=== PATIENT | female | born 1980 | race Caucasian/White ===

== ENCOUNTER → 2016-11-20 | Outpatient (CLI) | payer BC ==
--- NOTE | 2016-11-20 12:53 | XR ---
EXAMINATION TYPE: XR shoulder complete LT DATE OF EXAM: 11/20/2016 12:47 PM COMPARISON: NONE HISTORY: Pain The osseous structures are intact. There is no acute fracture or dislocation. The AC joint is maint ained. IMPRESSION: 1. No acute process.
== END | disposition home or self-care (01) ==
LOC: RADXRMAIN 12:33
PROVIDERS: ATTEND Family Medicine
DX: M25.512 Pain in left shoulder (principal)

== ENCOUNTER → 2017-02-05 | Outpatient (CLI) | payer BC ==
--- NOTE | 2017-02-05 22:05 | MR ---
EXAMINATION TYPE: MR lumbar spine wo con DATE OF EXAM: 02/05/2017 7:54 PM COMPARISON: NONE HISTORY: Low back pain TECHNIQUE: T1 and T2 axial and sagittal images of the lumbar spine are submitted. FINDINGS: There is no abnormal signal seen within the visualized spinal cord or paraspinal soft tissu es. At L1-2 there is no degenerative disc disease, disc herniation, or canal stenosis. No foraminal encro achment. At L2-3 there is no degenerative disc disease, disc herniation, or canal stenosis. No foraminal encro achment. At L3-4 there is no degenerative disc disease, disc herniation, or canal stenosis. No foraminal encro achment. At L4-5 there is mild hypertrophic change of the facets. There is broad-based central disc bulging wi th mild effacement of thecal sac and mild bilateral foraminal encroachment. No Canal stenosis. At L5-S1 there is moderate facet arthropathy. No disc herniation or canal stenosis. No foraminal encr oachment. IMPRESSION: 1. At L4-L5 there is broad-based central disc bulging with mild effacement of thecal sac and mild zohra ateral foraminal encroachment. No Canal stenosis. 2. Moderate facet arthropathy L5-S1
== END | disposition home or self-care (01) ==
LOC: RADMRIMAIN 18:38
PROVIDERS: ATTEND Family Medicine
DX: M51.26 Other intervertebral disc displacement, lumbar region (principal); M46.97 Unspecified inflammatory spondylopathy, lumbosacral region
CPT/HCPCS: 72148

== ENCOUNTER 2017-09-17 16:05 | Observation (INO) | payer BC ==
[2017-09-17 16:53] LABS: Anisocytosis Slight; Basophils # (A) 0.1 k/uL (0-0.2); Basophils % (A) 0 %; CH 22.1; CHCM 32.5; Eosinophils # (A) 0.3 k/uL (0-0.7); Eosinophils % (A) 3 %; HCT 35.6 % (34.0-46.0); HDW 2.86; HGB 11.5 gm/dL (11.4-16.0); Luc # (Auto) 0.14; Luc % (Auto) 1; Lymphocytes # (A) 1.7 k/uL (1.0-4.8); Lymphocytes % (A) 16 %; MCH 22.2 pg (25.0-35.0); MCHC 32.4 g/dL (31.0-37.0); MCV 68.6 fL (80.0-100.0); Mean Platelet Volume 8.1; Microcytosis Marked; Monocytes # (A) 0.6 k/uL (0-1.0); Monocytes % (A) 5 %; Neutrophils # (A) 8.1 k/uL (1.3-7.7); Neutrophils % (A) 75 %; RBC 5.19 m/uL (3.80-5.40); RDW 18.2 % (11.5-15.5); WBC 10.8 k/uL (3.8-10.6); WBC (Perox) 11.25
[2017-09-17 17:01] LABS: Partial Thromboplastin Time 24.2 sec (22.0-30.0); Prothrombin Time 10.3 sec (9.0-12.0)
[2017-09-17 17:02] LABS: ALT 28 U/L (9-52); AST 13 U/L (14-36); Alkaline Phosphatase 57 U/L (38-126); Anion Gap 9 mmol/L; Blood Urea Nitrogen 12 mg/dL (7-17); Calcium 9.8 mg/dL (8.4-10.2); Carbon Dioxide 20 mmol/L (22-30); Chloride 108 mmol/L (98-107); Glucose 77 mg/dL (74-99); Magnesium 2.1 mg/dL (1.6-2.3); Non-African American GFR(MDRD) >60 (>60 ml/min/1.73 sqM); Sodium 137 mmol/L (137-145); Total Bilirubin 0.3 mg/dL (0.2-1.3)
[2017-09-17 17:18] LABS: Creatine Kinase 49 U/L (30-135)
[2017-09-17 17:29] LABS: Creatine Kinase MB 0.3 ng/mL (0.0-2.4); Troponin I <0.012 ng/mL (0.000-0.034)
--- NOTE | 2017-09-17 17:33 | ED ---
SOB HPI - General Chief Complaint: Shortness of Breath Stated Complaint: Chest Pain Time Seen by Provider: 09/17/17 16:22 Source: patient, RN notes reviewed Mode of arrival: wheelchair Limitations: no limitations - History of Present Illness Initial Comments: 36-year-old female presents emergency Department with chief complaint of shortness breath. Patient states her last few weeks she's had increasing shortness of breath. Patient states she initially thought it was due to her went to see her MAINTENANCE TRAINER Dr. Herrmann who sent to the emergency department at [facility]. At that point she had lab work, CT of her chest. They states that she had no evidence of corneal is a. She states her symptoms have been slowly getting worse and she was sent to Dr. Melendez's office for pulmonary testing today which she was told was normal. Due to her increasing symptoms or called her physician who recommended physical emergency Department for possible echo. She states that she was told that she has a hole in her heart she's not sure where states she was born with this. Patient states her last echo was approximately 13 years ago. Patient is A1 has had no symptoms of this during her prior pregnancies. She states her first she did have preeclampsia with though she was not placed on any medications. Patient denies headache but states she occasionally has some dizziness. Patient states that she is not having some chest discomfort which is new for her. Patient states that she is anxious though she does not feel this is related to anxiety. Patient has no prior asthma or lung disorders. - Related Data Home Medications Medication Instructions Recorded Confirmed Albuterol Inhaler [Ventolin Hfa 1 - 2 puff INHALATION RT-Q6H PRN 09/17/17 Inhaler] Ferrous Sulfate [Feosol] 325 mg PO DAILY 09/17/17 09/17/17 Levothyroxine Sodium [Synthroid] 75 mcg PO DAILY 09/17/17 09/17/17 [id number]-[id number] Acid 1 cap PO DAILY 09/17/17 09/17/17 [-U Capsule (formulary)] Allergies Allergy/AdvReac Type Severity Reaction Status Date / Time latex Allergy Unknown Verified 09/17/17 16:23 Review of Systems ROS Statement: Those systems with pertinent positive or pertinent negative responses have been documented in the HPI. ROS Other: All systems not noted in ROS Statement are negative. Past Medical History Past Medical History: Fibromyalgia, Thyroid Disorder History of Any Multi-Drug Resistant Organisms: None Reported Past Surgical History: Orthopedic Surgery Additional Past Surgical History / Comment(s): knee surgery Past Psychological History: No Psychological Hx Reported Smoking Status: Never smoker Past Alcohol Use History: Occasional Past Drug Use History: None Reported General Exam Limitations: no limitations General appearance: alert, in no apparent distress Head exam: Present: atraumatic, normocephalic, normal inspection Neck exam: Present: normal inspection. Absent: tenderness, meningismus, lymphadenopathy Respiratory exam: Present: normal lung sounds bilaterally. Absent: respiratory distress, wheezes, rales, rhonchi, stridor Cardiovascular Exam: Present: regular rate, normal rhythm, normal heart sounds. Absent: systolic murmur, diastolic murmur, rubs, gallop, clicks GI/Abdominal exam: Present: soft, normal bowel sounds. Absent: distended, tenderness, guarding, rebound, rigid Psychiatric exam: Present: anxious Skin exam: Present: warm, dry, intact, normal color. Absent: rash Course Vital Signs 09/17/17 09/17/17 16:14 16:44 Temperature 97.8 F Pulse Rate 73 66 Respiratory 20 22 Rate Blood Pressure 124/64 111/59 O2 Sat by Pulse 100 100 Oximetry Medical Decision Making - Medical Decision Making Lab work, CTA of the chest was obtained from [facility] which did show no evidence of pulmonary wasn't. Patient's labwork essentially unremarkable and similar to labwork today. - Lab Data Result diagrams: 09/17/17 16:39 09/17/17 16:39 Lab Results 09/17/17 09/17/17 09/17/17 Range/Units 16:39 16:39 16:39 WBC 10.8 H (3.8-10.6) k/uL RBC 5.19 (3.80-5.40) m/uL Hgb 11.5 (11.4-16.0) gm/dL Hct 35.6 (34.0-46.0) % MCV 68.6 L (80.0-100.0) fL MCH 22.2 L (25.0-35.0) pg MCHC 32.4 (31.0-37.0) g/dL RDW 18.2 H (11.5-15.5) % Plt Count 267 (150-450) k/uL Neutrophils % 75 % Lymphocytes % 16 % Monocytes % 5 % Eosinophils % 3 % Basophils % 0 % Neutrophils # 8.1 H (1.3-7.7) k/uL Lymphocytes # 1.7 (1.0-4.8) k/uL Monocytes # 0.6 (0-1.0) k/uL Eosinophils # 0.3 (0-0.7) k/uL Basophils # 0.1 (0-0.2) k/uL Anisocytosis Slight Microcytosis Marked PT (9.0-12.0) sec INR (<1.2) APTT (22.0-30.0) sec Sodium 137 (137-145) mmol/L Potassium 4.0 (3.5-5.1) mmol/L Chloride 108 H (98-107) mmol/L Carbon Dioxide 20 L (22-30) mmol/L Anion Gap 9 mmol/L BUN 12 (7-17) mg/dL Creatinine 0.85 (0.52-1.04) mg/dL Est GFR (MDRD) Af Amer >60 (>60 ml/min/1.73 sqM) Est GFR (MDRD) Non-Af >60 (>60 ml/min/1.73 sqM) Glucose 77 (74-99) mg/dL Calcium 9.8 (8.4-10.2) mg/dL Magnesium 2.1 (1.6-2.3) mg/dL Total Bilirubin 0.3 (0.2-1.3) mg/dL AST 13 L (14-36) U/L ALT 28 (9-52) U/L Alkaline Phosphatase 57 (38-126) U/L Total Creatine Kinase 49 (30-135) U/L CK-MB (CK-2) 0.3 (0.0-2.4) ng/mL CK-MB (CK-2) Rel Index 0.6 Troponin I <0.012 (0.000-0.034) ng/mL NT-Pro-B Natriuret Pep pg/mL Total Protein 7.0 (6.3-8.2) g/dL Albumin 3.8 (3.5-5.0) g/dL 09/17/17 09/17/17 Range/Units 16:39 16:39 WBC (3.8-10.6) k/uL RBC (3.80-5.40) m/uL Hgb (11.4-16.0) gm/dL Hct (34.0-46.0) % MCV (80.0-100.0) fL MCH (25.0-35.0) pg MCHC (31.0-37.0) g/dL RDW (11.5-15.5) % Plt Count (150-450) k/uL Neutrophils % % Lymphocytes % % Monocytes % % Eosinophils % % Basophils % % Neutrophils # (1.3-7.7) k/uL Lymphocytes # (1.0-4.8) k/uL Monocytes # (0-1.0) k/uL Eosinophils # (0-0.7) k/uL Basophils # (0-0.2) k/uL Anisocytosis Microcytosis PT 10.3 (9.0-12.0) sec INR 1.0 (<1.2) APTT 24.2 (22.0-30.0) sec Sodium (137-145) mmol/L Potassium (3.5-5.1) mmol/L Chloride (98-107) mmol/L Carbon Dioxide (22-30) mmol/L Anion Gap mmol/L BUN (7-17) mg/dL Creatinine (0.52-1.04) mg/dL Est GFR (MDRD) Af Amer (>60 ml/min/1.73 sqM) Est GFR (MDRD) Non-Af (>60 ml/min/1.73 sqM) Glucose (74-99) mg/dL Calcium (8.4-10.2) mg/dL Magnesium (1.6-2.3) mg/dL Total Bilirubin (0.2-1.3) mg/dL AST (14-36) U/L ALT (9-52) U/L Alkaline Phosphatase (38-126) U/L Total Creatine Kinase (30-135) U/L CK-MB (CK-2) (0.0-2.4) ng/mL CK-MB (CK-2) Rel Index Troponin I (0.000-0.034) ng/mL NT-Pro-B Natriuret Pep 34 pg/mL Total Protein (6.3-8.2) g/dL Albumin (3.5-5.0) g/dL 09/17/17 17:59 EKG performed at 16:26 normal sinus rhythm rate of 68 VA 138 QRS 86 QTC is QTC 382/406 Disposition Clinical Impression: Exertional shortness of breath, Disposition: ADMITTED IP TO THIS [facility] Condition: Stable Referrals: Jonah Shah DO [Primary Care Provider] - 1-2 days
--- NOTE | 2017-09-17 17:48 | XR ---
EXAMINATION TYPE: XR chest 2V DATE OF EXAM: 09/17/2017 COMPARISON: NONE HISTORY: Difficulty breathing TECHNIQUE: Frontal and lateral views of the chest are obtained. FINDINGS: Heart and mediastinum are normal. Lungs are clear. Costophrenic angles are clear. There ar e chest leads. Bony thorax is intact. IMPRESSION: Normal chest
[2017-09-17] MEDS ORDERED: ACETAMINOPHEN TAB 325 MG TAB PO PRN (18:08)
[2017-09-17 20:28] VITALS: BMI 38.9
[2017-09-17 20:51] LABS: Amorphous Sediment,Urine Rare /hpf; Appearance,Urine Turbid (Clear); Bacteria,Urine Occasional /hpf; Bilirubin,Urine Negative (Negative); Glucose,Urine (UA) Negative (Negative); Ketones,Urine Negative (Negative); Leukocyte Esterase,Urine Trace (Negative); Mucus,Urine Rare /hpf; Nitrite,Urine Negative (Negative); PH, Urine 6.5 (5.0-8.0); Particle Count 13323; Protein,Urine Negative (Negative); RBC,Urine 2 /hpf (0-5); Specific Gravity,Urine 1.018 (1.001-1.035); Squamous Epithelial Cell,Urine 1 /hpf (0-4); UA Billing (MACRO vs. MICRO) MICRO; Urobilinogen,Urine <2.0 mg/dL (<2.0)
[2017-09-18 12:31] LABS: ABG Base Excess -4.3 mmol/L; ABG HCO3 19 mmol/L (21-25); ABG PCO2 26 mmHg (35-45); ABG PH 7.48 (7.35-7.45); ABG PO2 108 mmHg (83-108); ABG TCO2 20 mmol/L (19-24)
--- NOTE | 2017-09-18 13:14 | P.CNPUL ---
History of Present Illness Consult date: 09/18/17 Reason for consult: dyspnea History of present illness: A 36-year-old female patient was admitted yesterday to the hospital because of increased shortness of breath. This patient is at her 10th week of . She has had previous pregnancies without any major complaints or respiratory difficulties. Over this past 10 days, the patient has been short of breath with limited amount of activity and even at rest. Upon walking she gets short of breath. In fact, her shortness of breath is out of proportion to her physical findings. The patient was sent over to [facility] and she underwent a CT angios the chest and was reported to be negative. She subsequently was seen in our office for her pulmonary function test and apparently the data was also within normal limits. She has no cough or sputum production. No pleurisy. No hemoptysis. Her chest x-rays clear. She has minimal swelling lower extremities. No 70 cardiomyopathy. Most of any congenital heart disease. Echocardiogram is in progress for now. She has history of hypothyroidism and she is on thyroid hormones replacement. No previous history of DVT. No previous history of PE. No previous history of cardiomyopathy. She has a previous history of preeclampsia during . Room air pulse ox is 98-100%. She did not demonstrate any exertional desaturations. Her heart rate also remained less than 100 and is sinus rhythm with activity. Her EKG showing normal sinus rhythm. No other acute abnormalities was noted. Her ABG showing acute respiratory alkalosis. This was done and FiO2 of 21%. The patient has a pH of 7.48 with a pCO2 of 26 and pO2 of 108 and there is no evidence of any a a gradient. The troponin is negative. The hemoglobin is at 11.5. Review of Systems Constitutional: Denies chills, Denies fever Eyes: denies blurred vision, denies bulging eye, denies decreased vision Ears: deny: decreased hearing, ear discharge, earache Ears, nose, mouth and throat: Denies headache, Denies sore throat Cardiovascular: Reports decreased exercise tolerance, Reports shortness of breath Respiratory: Reports dyspnea Gastrointestinal: Denies abdominal pain, Denies diarrhea, Denies nausea, Denies vomiting Genitourinary: Denies dysuria, Denies hematuria Musculoskeletal: absent: ankle pain, ankle stiffness, ankle swelling Integumentary: Denies pruritus, Denies rash Neurological: Denies numbness, Denies weakness Psychiatric: Denies anxiety, Denies depression Endocrine: Denies fatigue, Denies weight change Past Medical History Past Medical History: Fibromyalgia, Thyroid Disorder History of Any Multi-Drug Resistant Organisms: None Reported Past Surgical History: Orthopedic Surgery Additional Past Surgical History / Comment(s): knee surgery Past Anesthesia/Blood Transfusion Reactions: No Reported Reaction Past Psychological History: No Psychological Hx Reported Smoking Status: Never smoker Past Alcohol Use History: Occasional Past Drug Use History: None Reported - Past Family History Daughter(s) Family Medical History: No Reported History Medications and Allergies Home Medications Medication Instructions Recorded Confirmed Type Albuterol Inhaler [Ventolin Hfa 1 - 2 puff INHALATION RT-Q6H PRN 09/17/17 History Inhaler] Ferrous Sulfate [Feosol] 325 mg PO DAILY 09/17/17 09/17/17 History Levothyroxine Sodium [Synthroid] 75 mcg PO DAILY 09/17/17 09/17/17 History Xfc-Itwx-Roppw Acid 1 cap PO DAILY 09/17/17 09/17/17 History [-U Capsule (formulary)] busPIRone HCL [Buspar] 7.5 mg PO BID #30 tab 09/18/17 Rx Allergies Allergy/AdvReac Type Severity Reaction Status Date / Time latex Allergy Rash/Hives Verified 09/17/17 20:29 Physical Exam Vitals: Vital Signs Temp Pulse Pulse Pulse Resp BP BP 09/18/17 12:06 97.6 F 67 24 118/70 09/18/17 12:00 95 28 H 09/18/17 08:04 97.2 F L 67 24 108/57 09/18/17 08:00 24 09/18/17 02:00 66 20 106/55 09/18/17 00:00 72 20 09/17/17 23:00 97 F L 72 20 106/61 09/17/17 20:00 60 20 09/17/17 18:48 98.4 F 60 18 118/79 09/17/17 18:16 98.6 F 60 22 119/66 09/17/17 18:07 97.5 F L 67 20 136/71 09/17/17 16:44 66 22 111/59 09/17/17 16:14 97.8 F 73 20 124/64 Pulse Ox 09/18/17 12:06 100 09/18/17 12:00 98 09/18/17 08:04 100 09/18/17 08:00 09/18/17 02:00 100 09/18/17 00:00 09/17/17 23:00 100 09/17/17 20:00 09/17/17 18:48 100 09/17/17 18:16 100 09/17/17 18:07 100 09/17/17 16:44 100 09/17/17 16:14 100 Intake and Output 09/17/17 09/18/17 09/18/17 22:59 06:59 14:59 Intake Total 400 500 Balance 400 500 Intake: Oral 400 500 Other: Voiding Method Toilet Toilet # Voids 1 1 1 Weight 116.12 kg The patient appeared well nourished and normally developed. Vital signs as documented. Head exam is unremarkable. No scleral icterus or corneal arcus noted. Neck is without jugular venous distension, thyromegaly, or carotid bruits. Carotid upstrokes are brisk bilaterally. Lungs are clear to auscultation and percussion. Cardiac exam reveals the PMI to be normally sized and situated. Rhythm is regular. First and second heart sounds normal. No murmurs, rubs or gallops. Abdominal exam reveals normal bowel sounds, no masses , no organomegaly and no aortic enlargement. Extremities are nonedematous and both femoral and pedal pulses are normal. Results - Laboratory Findings CBC and BMP: 09/17/17 16:39 09/17/17 16:39 ABG ABG pH 7.48 (7.35-7.45) H 09/18/17 12:27 ABG pCO2 26 mmHg (35-45) L 09/18/17 12:27 ABG pO2 108 mmHg (83-108) 09/18/17 12:27 ABG O2 Saturation 99.0 % (94-97) H 09/18/17 12:27 PT/INR, D-dimer PT 10.3 sec (9.0-12.0) 09/17/17 16:39 INR 1.0 (<1.2) 09/17/17 16:39 Abnormal lab findings: Abnormal Labs 09/17/17 09/17/17 09/17/17 16:39 16:39 20:35 WBC 10.8 H MCV 68.6 L MCH 22.2 L RDW 18.2 H Neutrophils # 8.1 H ABG pH ABG pCO2 ABG HCO3 ABG O2 Saturation Chloride 108 H Carbon Dioxide 20 L AST 13 L Urine Appearance Turbid H Ur Leukocyte Esterase Trace H Amorphous Sediment Rare H Urine Bacteria Occasional H Urine Mucus Rare H Urine Yeast (Budding) Moderate H 09/18/17 12:27 WBC MCV MCH RDW Neutrophils # ABG pH 7.48 H ABG pCO2 26 L ABG HCO3 19 L ABG O2 Saturation 99.0 H Chloride Carbon Dioxide AST Urine Appearance Ur Leukocyte Esterase Amorphous Sediment Urine Bacteria Urine Mucus Urine Yeast (Budding) - Diagnostic Findings Chest x-ray: image reviewed Assessment and Plan Plan: Impression 1 dyspnea without any clear cardiopulmonary cause for shortness of breath. CT angios the chest was clear. The ABG showing Acute respiratory alkalosis without evidence of a AA gradient. Recurrent chest x-ray is clear. No signs of any cardiomyopathy and echocardiogram is in progress. 2 acute respiratory alkalosis 3 , 10th week of gestation 4 obesity. 5 hypothyroidism 6 anxiety maintained on blue spot on outpatient basis Plan To complete a dyspnea workup, the patient will need an echocardiogram. We'll check a Doppler of lower extremity. No exertional hypoxemia. No evidence of any AA gradient. Could be her shortness of breath related to hormonal changes interstitial . Could be related to an anxiety. We'll continue to follow.
--- NOTE | 2017-09-18 14:02 | P.HPIM ---
History of Present Illness Patient is a 82-year-old female came in with compensative shortness of breath patient is 10 weeks , underwent extensive evaluation patient apparently had an outpatient primary function testing which is a normal and patient had CT angios the chest which was negative for pulmonary embolism in [facility]. Troponin I ABG patient does not have any significant past medical history patient is nonsmoker not a smoker lung exam clear to auscultation patient is still tachypneic which I believe is due to anxiety I did review buspirone which can be used during . Patient will obtain TSH echocardiogram was also obtain will await the results if all of these are negative patient will be discharged patient probably has anxiety patient was a valid by cardiology patient upon ablation is saturating at 100% patient's pCO2 is 26 secondary to hyperventilation your patient denied any orthopnea PND patient does not have any pedal edema, denied any chest pain Review of Systems REVIEW OF SYSTEMS: CONSTITUTIONAL: No fever, no malaise, no fatigue. HEENT: No recent visual problems or hearing problems. Denied any sore throat. CARDIOVASCULAR: No chest pain, orthopnea, PND, no palpitations, no syncope. PULMONARY: no cough, no hemoptysis. GASTROINTESTINAL: No diarrhea, no nausea, no vomiting, no abdominal pain. Normoactive bowel sounds. NEUROLOGICAL: No headaches, no weakness, no numbness. HEMATOLOGICAL: Denies any bleeding or petechiae. GENITOURINARY: Denies any burning micturition, frequency, or urgency. MUSCULOSKELETAL/RHEUMATOLOGICAL: Denies any joint pain, swelling, or any muscle pain. ENDOCRINE: Denies any polyuria or polydipsia. The rest of the 14-point review of systems is negative. Past Medical History Past Medical History: Fibromyalgia, Thyroid Disorder History of Any Multi-Drug Resistant Organisms: None Reported Past Surgical History: Orthopedic Surgery Additional Past Surgical History / Comment(s): knee surgery Past Anesthesia/Blood Transfusion Reactions: No Reported Reaction Past Psychological History: No Psychological Hx Reported Smoking Status: Never smoker Past Alcohol Use History: Occasional Past Drug Use History: None Reported - Past Family History Daughter(s) Family Medical History: No Reported History Medications and Allergies Home Medications Medication Instructions Recorded Confirmed Type Albuterol Inhaler [Ventolin Hfa 1 - 2 puff INHALATION RT-Q6H PRN 09/17/17 History Inhaler] Ferrous Sulfate [Feosol] 325 mg PO DAILY 09/17/17 09/17/17 History Levothyroxine Sodium [Synthroid] 75 mcg PO DAILY 09/17/17 09/17/17 History Olb-Alur-Fuupj Acid 1 cap PO DAILY 09/17/17 09/17/17 History [-U Capsule (formulary)] busPIRone HCL [Buspar] 7.5 mg PO BID #30 tab 09/18/17 Rx Allergies Allergy/AdvReac Type Severity Reaction Status Date / Time latex Allergy Rash/Hives Verified 09/17/17 20:29 Physical Exam Vitals: Vital Signs Temp Pulse Pulse Pulse Resp BP BP 09/18/17 12:06 97.6 F 67 24 118/70 09/18/17 12:00 95 28 H 09/18/17 08:04 97.2 F L 67 24 108/57 09/18/17 08:00 24 09/18/17 02:00 66 20 106/55 09/18/17 00:00 72 20 09/17/17 23:00 97 F L 72 20 106/61 09/17/17 20:00 60 20 09/17/17 18:48 98.4 F 60 18 118/79 09/17/17 18:16 98.6 F 60 22 119/66 09/17/17 18:07 97.5 F L 67 20 136/71 09/17/17 16:44 66 22 111/59 09/17/17 16:14 97.8 F 73 20 124/64 Pulse Ox 09/18/17 12:06 100 09/18/17 12:00 98 09/18/17 08:04 100 09/18/17 08:00 09/18/17 02:00 100 09/18/17 00:00 09/17/17 23:00 100 09/17/17 20:00 09/17/17 18:48 100 09/17/17 18:16 100 09/17/17 18:07 100 09/17/17 16:44 100 09/17/17 16:14 100 Intake and Output 09/17/17 09/18/17 09/18/17 22:59 06:59 14:59 Intake Total 400 500 Balance 400 500 Intake: Oral 400 500 Other: Voiding Method Toilet Toilet # Voids 1 1 1 Weight 116.12 kg PHYSICAL EXAMINATION: GENERAL: The patient is alert and oriented x3, not in any acute distress. Well developed, well nourished. she is hyperventilating HEENT: Pupils are round and equally reacting to light. EOMI. No scleral icterus. No conjunctival pallor. Normocephalic, atraumatic. No pharyngeal erythema. No thyromegaly. CARDIOVASCULAR: S1 and S2 present. No murmurs, rubs, or gallops. PULMONARY: Chest is clear to auscultation, no wheezing or crackles. ABDOMEN: Soft, nontender, nondistended, normoactive bowel sounds. No palpable organomegaly. MUSCULOSKELETAL: No joint swelling or deformity. EXTREMITIES: No cyanosis, clubbing, or pedal edema. NEUROLOGICAL: Gross neurological examination did not reveal any focal deficits. SKIN: No rashes. Results CBC & Chem 7: 09/17/17 16:39 09/17/17 16:39 Labs: Abnormal Lab Results - Last 24 Hours (Table) 09/17/17 09/17/17 09/17/17 Range/Units 16:39 16:39 20:35 WBC 10.8 H (3.8-10.6) k/uL MCV 68.6 L (80.0-100.0) fL MCH 22.2 L (25.0-35.0) pg RDW 18.2 H (11.5-15.5) % Neutrophils # 8.1 H (1.3-7.7) k/uL ABG pH (7.35-7.45) ABG pCO2 (35-45) mmHg ABG HCO3 (21-25) mmol/L ABG O2 Saturation (94-97) % Chloride 108 H (98-107) mmol/L Carbon Dioxide 20 L (22-30) mmol/L AST 13 L (14-36) U/L Urine Appearance Turbid H (Clear) Ur Leukocyte Esterase Trace H (Negative) Amorphous Sediment Rare H (None) /hpf Urine Bacteria Occasional H (None) /hpf Urine Mucus Rare H (None) /hpf Urine Yeast (Budding) Moderate H (None) /hpf 09/18/17 Range/Units 12:27 WBC (3.8-10.6) k/uL MCV (80.0-100.0) fL MCH (25.0-35.0) pg RDW (11.5-15.5) % Neutrophils # (1.3-7.7) k/uL ABG pH 7.48 H (7.35-7.45) ABG pCO2 26 L (35-45) mmHg ABG HCO3 19 L (21-25) mmol/L ABG O2 Saturation 99.0 H (94-97) % Chloride (98-107) mmol/L Carbon Dioxide (22-30) mmol/L AST (14-36) U/L Urine Appearance (Clear) Ur Leukocyte Esterase (Negative) Amorphous Sediment (None) /hpf Urine Bacteria (None) /hpf Urine Mucus (None) /hpf Urine Yeast (Budding) (None) /hpf Thrombosis Risk Factor Assmnt - Choose All That Apply Each Factor Represents 1 point: or Other Risk Factors: No Other congenital or acquired thrombophilia - If yes, enter type in comment: No Thrombosis Risk Factor Assessment Total Risk Factor Score: 1 Thrombosis Risk Factor Assessment Level: Low Risk Assessment and Plan Plan: Number shortness of breath and hyperventilation: Prior probably related to anxiety episode #2 rule out pulmonary embolism #3 rule out DVT #4 we will rule out hyperthyroidism #5 we will rule out congestive heart failure R any significant valvular abnormalities. #6 respiratory alkalosis secondary to hyperventilation. #7 probable anxiety disorder #8 10 weeks avoid benzodiazepines and barbiturates will use buspirone
--- NOTE | 2017-09-18 14:11 | P.DS ---
Providers Date of admission: 09/17/17 18:07 Attending physician: Damir Bell Consults: 09/17/17 18:09 Consult Physician Routine Consulting Provider: Hany Melendez Consult Reason/Comments: Exertional shortness of breath Do you want consulting provider notified?: Yes Primary care physician: Jonah Shah [facility] Course: Please refer to HPI Patient Condition at Discharge: Stable Plan - Discharge Summary Discharge Rx Participant: No New Discharge Prescriptions: New busPIRone HCL [Buspar] 7.5 mg PO BID #30 tab No Action Iha-Etqj-Oturs Acid [-U Capsule (formulary)] 1 cap PO DAILY Levothyroxine Sodium [Synthroid] 75 mcg PO DAILY Ferrous Sulfate [Feosol] 325 mg PO DAILY Albuterol Inhaler [Ventolin Hfa Inhaler] 1 - 2 puff INHALATION RT-Q6H PRN PRN Reason: Shortness Of Breath Discharge Medication List Albuterol Inhaler [Ventolin Hfa Inhaler] 1 - 2 puff INHALATION RT-Q6H PRN [History] Ferrous Sulfate [Feosol] 325 mg PO DAILY 09/17/17 [History] Levothyroxine Sodium [Synthroid] 75 mcg PO DAILY 09/17/17 [History] Khg-Aabr-Txcnc Acid [-U Capsule (formulary)] 1 cap PO DAILY 01/29 [History] busPIRone HCL [Buspar] 7.5 mg PO BID #30 tab 09/18/17 [Rx] Follow up Appointment(s)/Referral(s): Jonah Shah DO [Primary Care Provider] - 1-2 days Discharge Disposition: HOME SELF-CARE
--- NOTE | 2017-09-18 14:19 | US ---
EXAMINATION TYPE: US venous doppler duplex LE DATE OF EXAM: 09/18/2017 1:53 PM COMPARISON: NONE CLINICAL HISTORY: R/o DVT. SOB, patient is 10 weeks , exam done portable SIDE PERFORMED: Bilateral TECHNIQUE: The lower extremity deep venous system is examined utilizing real time linear array sonog jacob with graded compression, doppler sonography and color-flow sonography. VESSELS IMAGED: External Iliac Vein (EIV) Common Femoral Vein Deep Femoral Vein Greater Saphenous Vein * Femoral Vein Popliteal Vein Small Saphenous Vein * Proximal Calf Veins (* superficial vessels) Right Leg: Appears negative for DVT Left Leg: Appears negative for DVT No popliteal fossa lesion was identified. IMPRESSION: This Examination Is Negative For Dvt In Both Legs.
--- NOTE | 2017-09-18 14:41 | ECHOF ---
Referral Reason:Exertional shortness of breath MEASUREMENTS -------- HEIGHT: 172.7 cm WEIGHT: 116.1 kg BP: 118/78 RVIDd: 2.4 cm (< 3.3) IVSd: 0.9 cm (0.6 - 1.1) LVIDd: 5.3 cm (3.9 - 5.3) LVPWd: 0.8 cm (0.6 - 1.1) IVSs: 1.3 cm LVIDs: 4.0 cm LVPWs: 1.1 cm LA Diam: 3.1 cm (2.7 - 3.8) Ao Diam: 2.7 cm (2.0 - 3.7) AV Cusp: 1.8 cm (1.5 - 2.6) LA Diam: 3.8 cm (2.7 - 3.8) EPSS: 0.5 cm MV E Leeroy: 0.89 m/s MV DecT: 182 ms MV A Leeroy: 0.52 m/s MV E/A Ratio: 1.71 RAP: 5.00 mmHg RVSP: 18.50 mmHg MV EF SLOPE: 72.91 mm/s (70 - 150) MV EXCURSION: 1.44 cm (> 18.000) FINDINGS -------- Sinus rhythm. This was a technically good study. LV size, wall thickness and systolic function are normal, with an EF greater than 55%. The left leanna tricular size is normal. The right ventricle is normal in size. The left atrial size is normal. The right atrial size is normal. The aortic valve is trileaflet, and appears structurally normal. No aortic stenosis or regurgitation. The mitral valve leaflets are mildly thickened. Mild mitral regurgitation is present. Mild tricuspid regurgitation present. There is no evidence of pulmonary hypertension. The right v entricular systolic pressure, as measured by Doppler, is 18.50mmHg. There is no pulmonic regurgitation present. The aortic root size is normal. There is no pericardial effusion. CONCLUSIONS -------- 1. Sinus rhythm. 2. LV size, wall thickness and systolic function are normal, with an EF greater than 55%. 3. The left ventricular size is normal. 4. The right ventricle is normal in size. 5. The left atrial size is normal. 6. The right atrial size is normal. 7. The aortic valve is trileaflet, and appears structurally normal. No aortic stenosis or regurgitati on. 8. The mitral valve leaflets are mildly thickened. 9. Mild mitral regurgitation is present. 10. Mild tricuspid regurgitation present. 11. There is no evidence of pulmonary hypertension. 12. The right ventricular systolic pressure, as measured by Doppler, is 18.50mmHg. 13. There is no pulmonic regurgitation present. 14. The aortic root size is normal. 15. There is no pericardial effusion. ARMATURE WINDER: Millicent Nayak RDCS
[2017-09-18 15:05] VITALS: BP 110/55; PULSE 72; RESP 20; TEMP 98.5
== END 2017-09-18 15:50 | disposition home or self-care (01) ==
LOC: EC 16:05 → 6PED 18:07
PROVIDERS: ADMIT Internal Medicine; ATTEND Internal Medicine
DX: O99.511 Diseases of the respiratory system complicating pregnancy, first trimester (principal); R06.4 Hyperventilation; R06.02 Shortness of breath; R07.9 Chest pain, unspecified; O99.341 Other mental disorders complicating pregnancy, first trimester; F41.9 Anxiety disorder, unspecified; Z3A.10 10 weeks gestation of pregnancy; O99.281 Endocrine, nutritional and metabolic diseases complicating pregnancy, first trimester; E03.9 Hypothyroidism, unspecified; E87.3 Alkalosis; M79.7 Fibromyalgia; Z79.899 Other long term (current) drug therapy; Z91.040 Latex allergy status; O99.211 Obesity complicating pregnancy, first trimester; E66.9 Obesity, unspecified; Z68.38 Body mass index [BMI] 38.0-38.9, adult; R06.82 Tachypnea, not elsewhere classified
CPT/HCPCS: 99285; 36415; 36600; 93005; 93306; 83880; 80053; 84443; 82550; 82553; 82805; 83735; 84484; 85025; 85610; 85730; 81001; 71020; 93970; G0378 ×2